=== PATIENT | male | born 1960 ===

== ENCOUNTER → 2019-07-04 | Outpatient (CLI) | payer OTHER | END | disposition home or self-care (01) | LOC: LAB EV 11:48 → LAB SHORT 11:48 | DX: L02.519 Cutaneous abscess of unspecified hand (principal) | CPT/HCPCS: 87070; 87075; 87077; 87147; 87186; 87205 ==

== ENCOUNTER 2020-12-22 07:47 | Day surgery (SDC) | payer BC ==
[~2020-12-22] VITALS: Ht 180.3 cm; Wt 87.1 kg
--- NOTE | 2020-12-22 08:35 | NUR ---
Ambulatory in Day Surgery History, Chart, Medications and Allergies reviewed before start of procedure. Lungs clear T/O to Auscultation. Patient confirms NPO status and agrees with scheduled surgery. Pre-Op teaching done. Pt verbalizes understanding. Patient States Post-Procedure ride home has been arranged.
--- NOTE | 2020-12-22 08:42 | NUR ---
12/22/20 0842 Abner Carvalho History, Chart, Medications and Allergies reviewed before start of procedure. MONITOR INTACT WITH CONTINUOUS PULSE OXIMETRY AND INTERMITTENT BP. 3-LEAD EKG REVIEWED WITH PHYSICIAN PRIOR TO START OF PROCEDURE. O2 VIA N/C INTACT THROUGHOUT SEDATION/PROCEDURE. PATIENT DETERMINED TO BE ASA APPROPRIATE FOR PROPOFOL SEDATION PRIOR TO START OF PROCEDURE BY DR. STEPHENS.
--- NOTE | 2020-12-22 09:34 | NUR ---
PT SHALINI PO FLUIDS WELL. WC RIDE OUT TO IRMA. IV DC'D.
== END 2020-12-22 09:37 | disposition home or self-care (01) ==
LOC: ORSCMMR 07:47 → ORD 08:30 → ORSCMMR 08:30
PROVIDERS: Internal Medicine Gastroenterology
PROC: 0DBH8ZX Excision of Cecum, Via Natural or Artificial Opening Endoscopic, Diagnostic (ICD-10-PCS; principal; 2020-12-22 08:30)
PROC: 0DBN8ZX Excision of Sigmoid Colon, Via Natural or Artificial Opening Endoscopic, Diagnostic (ICD-10-PCS; principal; 2020-12-22 08:30)
DX: Z12.11 Encounter for screening for malignant neoplasm of colon (principal); D12.0 Benign neoplasm of cecum; K63.5 Polyp of colon; I10 Essential (primary) hypertension; K57.30 Diverticulosis of large intestine without perforation or abscess without bleeding; Z79.899 Other long term (current) drug therapy
CPT/HCPCS: 88305; J2704; J7120

== ENCOUNTER → 2024-04-23 | Outpatient (CLI) | payer OTHER | LOC: LAB 12:53 → LAB SHORT 12:53 | DX: R30.0 Dysuria (principal) | CPT/HCPCS: 87086 ==